=== PATIENT | female | born 1980 ===

== ENCOUNTER 2020-01-22 13:55 | Emergency (ER) | payer OTHER, SELFPAY ==
[2020-01-22 14:12] VITALS: BP 117/81; PULSE 74; RESP 14; TEMP 36.7; O2SAT 99; BMI 25.6
--- NOTE | 2020-01-22 14:15 | XR_ITS ---
WS: [id number] Right elbow, 3 views, 01/22/2020 Clinical Data: INJURY Comparison: None. Findings: No fractures or dislocations are seen. The radial head is normal. The soft tissues are unremarkable. XR/XR elbow RT min 3V* [id number] Impression: Negative right elbow.
--- NOTE | 2020-01-22 15:27 | W.ED.EXTPRO ---
HPI - Extremity Problem General: Chief complaint: Extremity Injury, Upper Stated complaint: right elbow injury Time Seen by Provider: 01/22/20 15:20 History of Present Illness: HPI Narrative: Patient right elbow up against daily machine today and has on the outer aspect of her elbow hurts to move her arm Complaint: extremity pain Onset (ago): hour(s) Pain Consistency: constant Location: right and upper extremity Severity scale (1-10): 4 Quality: constant Relieving factors: immobilization Exacerbating factors: range of motion Associated symptoms: Reports no associated symptoms; Deny chest pain, fever(s) or rash Review of Systems Const: Denies: fever(s), chills or body aches Eyes: Denies: change in vision or blurry vision ENMT: Denies: throat pain or nasal congestion Card: Denies: chest pain or dyspnea on exertion Resp: Denies: dyspnea, productive cough or non-productive cough GI: Denies: abdominal pain, nausea or vomiting Musc: Reports: joint pain; Denies: extremity pain Skin/Breast: Denies: rash Neuro: Denies: headache(s) Psych: Denies: anxiety or depression Jose/Lymph: Denies: easy bruising Physical Exam Const: COMMON NORMALS: no acute distress, average body habitus and patient oriented x3 HENMT: COMMON NORMALS: normocephalic HEAD & SCALP: normal to inspection and normocephalic FACE & SINUS: normal facial exam Eye: COMMON NORMALS: conjunctivae normal GENERAL EYE: appearance normal, both eyes and all related structures CONJUNCTIVA: Yes conjunctivae normal Neck/C-Spine: COMMON NORMALS: no JVD Chest: COMMONS NORMALS: normal inspection of the chest Resp: COMMON NORMALS: normal respiratory effort Cardio: COMMON NORMALS: no JVD Extremity: COMMON NORMALS: normal to inspection and full ROM RIGHT UPPER EXTREMITY: Yes elbow joint (Has tenderness and a bruise to the outer aspect of the right elbow tenderness on palpation mild swelling does have good range of motion) Right elbow: Yes neurovascular exam (Intact) Neuro: COMMON NORMALS: patient oriented x3 Course Vital Signs: Vital signs: Vital Signs Temperature 98.1 F 01/22/20 14:12 Pulse Rate 74 01/22/20 14:12 Respiratory Rate 14 01/22/20 14:12 Blood Pressure 117/81 01/22/20 14:12 Pulse Oximetry 99 01/22/20 14:12 Discharge Plan Discharge Condition: Stable Referrals: Renata Lee PA [Primary Care Provider] - Coding Level of Care Code ED [employer] for Tony Sandhu
[2020-01-22 16:14] VITALS: BP 114/81; PULSE 68; RESP 16; O2SAT 98
[2020-01-22 16:16] VITALS: BP 112/82; PULSE 70; RESP 16; TEMP 36.7; O2SAT 98
== END 2020-01-22 16:19 | disposition home or self-care (01) ==
PROVIDERS: Emergency Provider Nurse Practitioner Family; PCP Physician Assistant
DX: S50.01XA Contusion of right elbow, initial encounter (principal); W22.09XA Striking against other stationary object, initial encounter
CPT/HCPCS: 12345; 73080; 99281; 99282